=== PATIENT | female | born 1990 | race Caucasian/White ===

== ENCOUNTER → 2023-06-18 09:15 | Outpatient (REF) | payer OTHER, SELFPAY | LOC: DHCBS MAIN 09:15 | PROVIDERS: ATTENDING PHYSICIAN Internal Medicine Cardiovascular Disease; FAMILY PHYSICIAN Physician Assistant Medical | DX: R00.2 Palpitations (principal) | CPT/HCPCS: 93306 ==

== ENCOUNTER 2023-07-01 17:03 | Emergency (ER) | payer OTHER, SELFPAY ==
[2023-07-01 17:06] VITALS: BP 191/114
[2023-07-01 17:30] LABS: % Basophils 0.6 % (0-2); % Eosinophils 1.7 % (0-6); % Immature Granulocytes 0.3 % (0-0.5); % Lymphocytes 28.1 % (20.5-51.1); % Neutrophils 62.3 % (42.2-75.2); Absolute Basophils 0.1 10^3/uL (0-0.2); Absolute Eosinophils 0.2 10^3/uL (0-0.7); Absolute Lymphocytes 3.4 10^3/uL (1.2-3.4); Absolute Monocytes 0.8 10^3/uL (0.1-0.6); Absolute Neutrophils 7.5 10^3/uL (1.4-6.5); Hematocrit 45.2 % (37.0-47.0); Hemoglobin 15.5 g/dL (12.0-16.0); Mean Corp Hgb Conc. 34.3 g/dL (33.0-37.0); Mean Corpuscular Hgb 28.8 pg (27.0-31.0); Nucleated Red Blood Cells % 0 %; Platelet Count 342 10^3/uL (130-400); Red Blood Cell Count 5.38 10^6/uL (4.20-5.40); Red Cell Dist. Width 13.5 % (11.5-14.5)
[2023-07-01 17:42] LABS: HCG, Serum Qualitative Screen Negative
[2023-07-01 17:50] LABS: ALT (SGPT) 39 U/L (0-35); AST (SGOT) 31 U/L (14-36); Albumin 3.2 g/dl (3.5-5.0); Alkaline Phosphatase 65 U/L (38-126); Blood Urea Nitrogen 13 mg/dl (7-17); Calcium 8.7 mg/dl (8.4-10.2); Carbon Dioxide 25 mmol/L (22-30); Chloride 105 mmol/L (98-107); Glucose 74 mg/dl (70-99); Potassium 3.8 mmol/L (3.5-5.1); Sodium 137 mmol/L (135-145); Total Bilirubin 0.6 mg/dl (0.2-1.3); Total Protein 5.8 g/dl (6.3-8.2); eGFR > 60.00
[2023-07-01 18:22] VITALS: BP 143/111
--- NOTE | 2023-07-01 18:28 | ED.GENMED ---
History of Present Illness
General
Chief Complaint: Heart Rate Problem
Time Seen by Provider: 07/01/23 18:28
Travel History
Have you had any contact with someone who has COVID-19?: No
Do you have any symptoms of coronavirus? Fever > 100 degrees, chills, cough, shortness of breath, sore throat, loss of taste or smell, muscle aches, or headache?: No
History of Present Illness
History of Present Illness:
HPI: The patient presents due to palpitations. She has had palpitations over the past year. Several months ago she went to see cardiology who diagnosed her with atrial tachycardia. She had been on a calcium channel lydia but did not tolerate
the side effects and the symptoms persisted. She was switched to a beta-lydia about a week ago�currently on metoprolol 25 mg XL daily. At times she does have lightheadedness.
EXAM:
GENERAL: Well appearing in no distress
HEENT: Moist oral mucosa
CARDIOVASCULAR: No murmurs, normal heart rate and rhythm, however she does have frequent ectopy and does become tachycardic at times no chest wall tenderness
PULMONARY: No respiratory distress, breath sounds are clear and equal
ABDOMEN: Soft with no peritoneal signs, no tenderness, elevated BMI
NEUROLOGIC: Excellent strength all extremities, no coordination deficits
PSYCHIATRIC: Appropriate mental status, normal insight and judgement
EXTREMITIES: Nontender, no edema, moves all extremities equally
SKIN: No rash, no lesions
ED COURSE:
6:45 PM: I initially evaluated patient
NUMBER AND COMPLEXITY OF PROBLEMS ADDRESSED AT THE ENCOUNTER
� Chronic conditions affecting care: Atrial tachycardia
� Acute Exacerbation and/or Progression of Chronic Illness: Acute exacerbation of atrial tachycardia
� Differential Diagnosis includes: Acute exacerbation of atrial tachycardia, atrial fibrillation,
AMOUNT AND/OR COMPLEXITY OF DATA TO BE REVIEWED AND ANALYZED
� I performed an independent evaluation of and my interpretation is:
EKG: Sinus with ventricular rate of 114 but frequently has atrial tachycardia with irregular rhythm
CT:
X-rays:
Laboratory Studies: Minimal leukocytosis with white count of 12, otherwise labs unremarkable, hCG is negative
Other:
� Review of other/old records: The patient has had recurrent tonsillitis in the past
� Clinical information was obtained by an independent historian: I spoke to the at bedside
� Prescriptions/Medications Considered but not given:
� Further testing considered but not performed:
RISK OF COMPLICATIONS AND/OR MORBIDITY OR MORTALITY OF PATIENT MANAGEMENT
� Social determinants of health affecting care: Lives at home with
� Discussion with other providers: I discussed with Dr. Golden who recommends patient increase the beta-lydia to twice a day.
� Escalation of care including admission/observation vs risk of discharge considered: Heart rate primarily in the 80s but frequently does increase to about the 150s. This is self-limited and then goes back down to sinus. Will
increase beta-lydia as recommended by cardiology. Her blood pressure has been elevated here.
Phy Exam
Physical Exam
Physical Exam:
See HPI
Course
Orders/Labs/Results
Orders:
Orders
07/01/23 17:04
Electrocardiogram (*1) Urgent
Reason for Study: Tachycardia
EKG- Treatment ONCE
Test Result ONCE
07/01/23 17:22
Complete Blood Count/With Diff Urgent
Comprehensive Metabolic Panel Urgent
HCG, Serum Qualitative Screen Urgent
07/01/23 17:26
TSH Reflex To Free T4 Urgent
Comment: ADD ON
07/01/23 18:56
Add On- LAB Urgent
Tests Added?: tsh reflex fT4
07/01/23 19:22
Metoprolol Xl [Toprol Xl] 25 mg PO NOW STA
Abnormal Lab Results
07/01/23
17:22
WBC 12.0 H 10^3/uL
(4.8-10.8)
MPV 11.0 H fL
(7.4-10.4)
Absolute Neuts (auto) 7.5 H 10^3/uL
(1.4-6.5)
Absolute Monos (auto) 0.8 H 10^3/uL
(0.1-0.6)
ALT 39 H U/L
(0-35)
Total Protein 5.8 L g/dl
(6.3-8.2)
Albumin 3.2 L g/dl
(3.5-5.0)
07/01/23 17:22
07/01/23 17:22
Vital Signs
Initial and Last Documented VS:
Initial Vital Signs
Temp Pulse Resp BP Pulse Ox
98.1 F 78 18 191/114 97
07/01/23 17:06 07/01/23 17:06 07/01/23 17:06 07/01/23 17:06 07/01/23 17:06
Last Documented Vital Signs
Temp Pulse Resp BP Pulse Ox
98.1 F 90 20 151/98 97
07/01/23 17:06 07/01/23 19:30 07/01/23 19:30 07/01/23 19:00 07/01/23 19:30
*Critical Care Note
Total Time (30-74mins, 75-104mins- exclusive of procedures): Not Applicable
ED Attending Note
-
Portions of this chart may have been created with voice recognition software.� Occasional wrong word or��sound alike� substitutions may have occurred due to the inherent limitations of voice recognition software.
Discharge Plan
Departure
Patient Disposition: Home (Routine Discharge)
Date of Disposition: 07/01/23
Time of Disposition: 19:38
Patient with high blood pressure during this ER visit?: Yes
Discharge Problem:
Atrial tachycardia
Instructions: Arrhythmias (DC), Tachycardia (DC)
Referrals:
Shital Gomez PA-C [Family Provider] -
Elmo Odonnell MD [Active] - Follow up in 2-3 days
Activity Restrictions/Additional Instructions:
I spoke to one of the malted milk masher with Dr. Olivares's group, he recommends that you increase the beta-lydia to 25 mg twice daily. Follow-up with their group.
Interventions
Interventions:
*Risk Screen - Suicide Last Done: 07/01/23 17:06
*General Assessment Last Done: 07/01/23 17:06
*Neglect/Abuse Screening Last Done: 07/01/23 17:06
ED- Fall Risk Assessment Last Done: 07/01/23 19:51
*ED COVID-19 Vaccine History Last Done: 07/01/23 17:06
*Nursing Disposition Last Done: 07/01/23 19:51
ED- Cardiac Assessment Last Done: 07/01/23 18:23
ED- Pulmonary Assessment Last Done: 07/01/23 18:23
Discharge Date and Time
Discharge Date/Time: 07/01/23 19:55
[2023-07-01 19:00] VITALS: BP 151/98
[2023-07-01] MEDS: TOPROL XL 25 MG PO (19:36)
== END 2023-07-01 19:55 | disposition home or self-care (01) ==
LOC: EMR 17:03
PROVIDERS: EMERGENCY PHYSICIAN Emergency Medicine; FAMILY PHYSICIAN Physician Assistant Medical
DX: I47.19 Other supraventricular tachycardia (principal); I48.91 Unspecified atrial fibrillation
CPT/HCPCS: 99283; 80053; 84443; 84703; 85025; 93005

== ENCOUNTER → 2023-08-13 12:38 | Outpatient (REF) | payer OTHER, SELFPAY | LOC: RCS 12:38 | PROVIDERS: ATTENDING PHYSICIAN Physician Assistant Medical; FAMILY PHYSICIAN Physician Assistant Medical | DX: R00.2 Palpitations (principal); I47.19 Other supraventricular tachycardia | CPT/HCPCS: 93017; 93350 ==

== ENCOUNTER → 2025-02-09 10:03 | Outpatient (REF) | payer OTHER, SELFPAY | LOC: HWRAD 10:03 | PROVIDERS: ATTENDING PHYSICIAN Physician Assistant Medical | DX: M25.562 Pain in left knee (principal) | CPT/HCPCS: 73564 ==

== ENCOUNTER → 2025-04-13 06:59 | Outpatient (REF) | payer OTHER, SELFPAY | LOC: MRI 3T 06:59 | PROVIDERS: ATTENDING PHYSICIAN Physician Assistant Medical | DX: M25.562 Pain in left knee (principal) | CPT/HCPCS: 73721 ==